=== PATIENT | female | born 1955 | race Caucasian/White ===

== ENCOUNTER 2021-07-25 12:58 | Observation (INO) | payer BC ==
[2021-07-25 14:01] LABS: BASO % 0.7 % (0-2.0); EOS % 6.8 % (0-4.5); HEMATOCRIT 39.1 % (32.4-45.2); LYMPH % 23.8 % (8-40); MCH 30.2 pg (25.7-33.7); MCHC 33.4 g/dl (32.0-36.0); MEAN CELL VOLUME 90.5 fl (80-96); MEAN PLT VOLUME 7.6 fl (7.5-11.1); MONO % 7.7 % (3.8-10.2); PLATELET COUNT 232 10^3/uL (134-434); RBC 4.31 M/mm3 (3.60-5.2); RDW 13.5 % (11.6-15.6); WHITE BLOOD COUNT 7.4 K/mm3 (4.0-10.0)
[2021-07-25 14:08] LABS: INR 1.08 (0.83-1.09); PROTHROMBIN TIME (PATIENT) 12.4 SEC (9.7-13.0)
[2021-07-25 14:11] LABS: ACTIVATED PTT 34.4 SECONDS (25.2-36.5)
[2021-07-25 14:18] LABS: ALBUMIN 4.2 g/dl (3.4-5.0); BLOOD UREA NITROGEN 18.2 mg/dL (7-18); MAGNESIUM 1.8 mg/dL (1.8-2.4)
[2021-07-25 14:21] LABS: CREATININE 0.6 mg/dL (0.55-1.3)
[2021-07-25 14:24] LABS: BILIRUBIN,TOTAL 0.5 mg/dL (0.2-1); TOT PROT 7.8 g/dl (6.4-8.2)
[2021-07-25 14:26] LABS: N-TERMINAL BNP 18.7 pg/ml (5-125)
[2021-07-25] MEDS ORDERED: GABAPENTIN 100 MG CAPSULE PO PRN (15:48)
[2021-07-25] MEDS: ASPIRIN COATED 81 MG TABLET.EC PO SCH (16:00)
[2021-07-25] MEDS: ENOXAPARIN NA (PORCINE) 40 MG/0.4 ML DISP.SYRIN SQ SCH (16:00)
[2021-07-25] MEDS ORDERED: ASPIRIN COATED 81 MG TABLET.EC ONE (19:17)
[2021-07-25] MEDS ORDERED: ENOXAPARIN NA (PORCINE) 40 MG/0.4 ML DISP.SYRIN SQ ONE (19:17)
[2021-07-25] MEDS ORDERED: ROSUVASTATIN CA 10 MG TABLET PO SCH (22:00)
[2021-07-25] MEDS: INSULIN SLIDING SCALE (NOVOLOG) 1 VIAL SQ SCH ×2 (22:20→22:23)
[2021-07-25] MEDS: ROSUVASTATIN CA 10 MG TABLET PO SCH ×2 (22:21→22:23)
[2021-07-26 00:10] VITALS: BMI 40.8
[2021-07-26] MEDS: INSULIN SLIDING SCALE (NOVOLOG) 1 VIAL SQ SCH ×3 (06:12→17:35)
[2021-07-26 07:40] LABS: INR 1.11 (0.83-1.09); PROTHROMBIN TIME (PATIENT) 12.8 SEC (9.7-13.0)
[2021-07-26 07:42] LABS: ACTIVATED PTT 34.4 SECONDS (25.2-36.5)
[2021-07-26 07:43] LABS: BASO % 0.7 % (0-2.0); EOS % 7.4 % (0-4.5); HEMATOCRIT 40.7 % (32.4-45.2); HEMOGLOBIN 13.8 GM/dL (10.7-15.3); LYMPH % 32.3 % (8-40); MCH 30.5 pg (25.7-33.7); MCHC 33.9 g/dl (32.0-36.0); MEAN CELL VOLUME 89.9 fl (80-96); MEAN PLT VOLUME 7.5 fl (7.5-11.1); MONO % 7.4 % (3.8-10.2); NEUT % 52.2 % (42.8-82.8); PLATELET COUNT 240 10^3/uL (134-434); RBC 4.53 M/mm3 (3.60-5.2); RDW 13.6 % (11.6-15.6); WHITE BLOOD COUNT 6.1 K/mm3 (4.0-10.0)
[2021-07-26 07:52] LABS: ALBUMIN 4.1 g/dl (3.4-5.0); BLOOD UREA NITROGEN 16.1 mg/dL (7-18); CALCIUM 9.1 mg/dL (8.5-10.1)
[2021-07-26 07:55] LABS: PHOSPHOROUS 3.6 mg/dL (2.5-4.9)
[2021-07-26 07:56] LABS: CREATININE 0.7 mg/dL (0.55-1.3)
[2021-07-26 07:57] LABS: BILIRUBIN,TOTAL 0.6 mg/dL (0.2-1); TOT PROT 7.6 g/dl (6.4-8.2)
[2021-07-26] MEDS: ASPIRIN COATED 81 MG TABLET.EC PO SCH (09:14)
[2021-07-26] MEDS: ENOXAPARIN NA (PORCINE) 40 MG/0.4 ML DISP.SYRIN SQ SCH (09:14)
[2021-07-26 09:54] VITALS: TEMP 97.8
[2021-07-26] MEDS ORDERED: LISINOPRIL 5 MG TABLET PO SCH ×2 (10:00)
[2021-07-26 14:23] VITALS: BP 115/73; PULSE 90
== END 2021-07-26 18:12 | disposition home or self-care (01) ==
LOC: JER 12:58 → JERBED 14:57 → J4S 23:14
PROVIDERS: ADMIT Internal Medicine; ATTEND Internal Medicine
DX: R07.9 Chest pain, unspecified (principal); E66.01 Morbid (severe) obesity due to excess calories; Z68.41 Body mass index [BMI] 40.0-44.9, adult; Z87.891 Personal history of nicotine dependence; I10 Essential (primary) hypertension; E11.9 Type 2 diabetes mellitus without complications; R01.1 Cardiac murmur, unspecified; R34 Anuria and oliguria; F41.9 Anxiety disorder, unspecified; E78.5 Hyperlipidemia, unspecified
CPT/HCPCS: 36415; 71045-TC-FY; 78452-TC; 80053; 80061; 82962; 83036; 83735; 83880; 84100; 84443; 84484; 85025; 85610; 85730; 93005; 93010; 93017; 93306-TC; 99285-25; A9502; C9803-CS; G0378; U0003; U0005

== ENCOUNTER 2022-12-07 04:36 | Day surgery (SDC) | payer BC ==
[2022-12-05 17:08] VITALS: BMI 43.7
[2022-12-07] MEDS ORDERED: LIDOCAINE HCL/PF 1% SDV 5ML VIAL ONE (07:23)
[2022-12-07] MEDS ORDERED: BUPIVACAINE HCL/PF 0.75% 10 ML VIAL ONE (07:23)
[2022-12-07 08:25] VITALS: RESP 20
[2022-12-07 12:05] VITALS: BP 118/60; PULSE 70; TEMP 98
[2022-12-07] MEDS ORDERED: ACETAMINOPHEN 500 MG TABLET (FP) PO PRN (13:33)
== END 2022-12-07 11:00 | disposition home or self-care (01) ==
LOC: JASU-SURG 04:36
PROVIDERS: ATTEND Pain Medicine Pain Medicine
PROC: 3E0T33Z Introduction of Anti-inflammatory into Peripheral Nerves and Plexi, Percutaneous Approach (ICD-10-PCS; 2022-12-07)
PROC: 3E0T3BZ Introduction of Anesthetic Agent into Peripheral Nerves and Plexi, Percutaneous Approach (ICD-10-PCS; principal; 2022-12-07 10:00)
DX: M47.816 Spondylosis without myelopathy or radiculopathy, lumbar region (principal)
CPT/HCPCS: 76000-TC-FY

== ENCOUNTER 2023-01-08 04:14 | Day surgery (SDC) | payer BC ==
[2023-01-07 08:16] VITALS: BMI 43.7
[2023-01-08] MEDS ORDERED: BUPIVACAINE HCL/PF 0.75% 10 ML VIAL ONE (07:12)
[2023-01-08] MEDS ORDERED: LIDOCAINE HCL/PF 1% SDV 5ML VIAL ONE (07:12)
[2023-01-08] MEDS ORDERED: LIDOCAINE 1% P/F 10 MG/ML VIAL INF ONE (08:32)
[2023-01-08] MEDS ORDERED: BUPIVACAINE HCL/PF 0.75% 10 ML VIAL NR ONE (08:32)
[2023-01-08 09:45] VITALS: BP 131/70; PULSE 78; RESP 20; TEMP 75
[2023-01-08] MEDS ORDERED: ACETAMINOPHEN 500 MG TABLET (FP) PO PRN (13:30)
== END 2023-01-08 09:45 | disposition home or self-care (01) ==
LOC: JASU-SURG 04:14
PROVIDERS: ATTEND Pain Medicine Pain Medicine
PROC: 3E0T33Z Introduction of Anti-inflammatory into Peripheral Nerves and Plexi, Percutaneous Approach (ICD-10-PCS; 2023-01-08)
PROC: 3E0T3BZ Introduction of Anesthetic Agent into Peripheral Nerves and Plexi, Percutaneous Approach (ICD-10-PCS; principal; 2023-01-08 12:00)
DX: M47.816 Spondylosis without myelopathy or radiculopathy, lumbar region (principal)
CPT/HCPCS: 76000-TC-FY

== ENCOUNTER 2023-02-12 04:36 | Day surgery (SDC) | payer BC ==
[2023-02-01 19:13] VITALS: BMI 43.7
[~2023-02-12 04:36] MED LIST: BUPIVACAINE HCL/PF 0.75% 10 ML VIAL NR ONE; DEXAMETHASONE SOD PHOSPHATE 10 MG/1 ML VIAL IVPUSH ONE; LIDOCAINE HCL 1% PRESERVATIVE FREE - 30ML VIAL IJ ONE
[2023-02-12] MEDS ORDERED: LIDOCAINE HCL/PF 1% SDV 5ML VIAL ONE ×3 (07:08→07:59)
[2023-02-12] MEDS ORDERED: BUPIVACAINE HCL/PF 0.5% (5MG/ML) 10 ML VIAL ONE (07:08)
[2023-02-12] MEDS ORDERED: BUPIVACAINE HCL/PF 0.75% 10 ML VIAL ONE ×3 (07:08→07:59)
[2023-02-12] MEDS ORDERED: LIDOCAINE HCL/PF 2% SDV 5ML VIAL ONE ×2 (07:32→07:36)
[2023-02-12] MEDS ORDERED: DEXAMETHASONE SOD PHOSPHATE 10 MG/1 ML VIAL ONE (07:34)
[2023-02-12] MEDS ORDERED: LIDOCAINE HCL 1% PRESERVATIVE FREE - 30ML VIAL IJ ONE (08:41)
[2023-02-12] MEDS ORDERED: BUPIVACAINE HCL/PF 0.75% 10 ML VIAL NR ONE (08:42)
[2023-02-12] MEDS ORDERED: DEXAMETHASONE SOD PHOSPHATE 10 MG/1 ML VIAL IVPUSH ONE (08:44)
[2023-02-12 09:29] VITALS: PULSE 78; RESP 16; TEMP 98.1
[2023-02-12 09:33] VITALS: BP 137/64
[2023-02-12] MEDS ORDERED: ACETAMINOPHEN 500 MG TABLET (FP) PO PRN (11:02)
== END 2023-02-12 09:30 | disposition home or self-care (01) ==
LOC: JASU-SURG 04:36
PROVIDERS: ATTEND Pain Medicine Pain Medicine
PROC: 015B3ZZ Destruction of Lumbar Nerve, Percutaneous Approach (ICD-10-PCS; principal; 2023-02-12 08:15)
DX: M47.816 Spondylosis without myelopathy or radiculopathy, lumbar region (principal)
CPT/HCPCS: 76000-TC-FY; J1100

== ENCOUNTER 2024-09-06 14:06 | Emergency (ER) | payer BC ==
[2024-09-06 14:18] VITALS: BP 140/67; PULSE 88; RESP 16; TEMP 98.4; BMI 38.4
[2024-09-06] MEDS ORDERED: DIPHTH,PERTUSS(ACELL),TET 0.5 ML DISP.SYRIN IM ONE (15:05)
[2024-09-06] MEDS: DIPHTH,PERTUSS(ACELL),TET 0.5 ML DISP.SYRIN IM ONE (15:08)
== END 2024-09-06 16:07 | disposition home or self-care (01) ==
LOC: FER 14:06
PROC: 3E0234Z Introduction of Serum, Toxoid and Vaccine into Muscle, Percutaneous Approach (ICD-10-PCS; principal; 2024-09-06)
DX: S42.291A Other displaced fracture of upper end of right humerus, initial encounter for closed fracture (principal); S42.214A Unspecified nondisplaced fracture of surgical neck of right humerus, initial encounter for closed fracture; S40.021A Contusion of right upper arm, initial encounter; S60.512A Abrasion of left hand, initial encounter; S80.211A Abrasion, right knee, initial encounter; Z23 Encounter for immunization; V28.49XA Other motorcycle driver injured in noncollision transport accident in traffic accident, initial encounter; Y92.410 Unspecified street and highway as the place of occurrence of the external cause
CPT/HCPCS: 73030-TC-RT-FY; 73060-TC-RT-FY; 90471; 90715; 99284-25